=== PATIENT | female | born 1985 | race Caucasian/White ===

== ENCOUNTER → 2021-12-22 | Day surgery (SDC) | payer BC ==
[~2021-12-22] MED LIST: ACETAMINOPHEN500 MG PO; DOXYCYCLINE HY100 MG PO; IBUPROFEN600 MG PO; OXYCODON-ACETA1 EAC2 PO; PERCOCET 7.5-31 EACH PO; VALACYCLOVIR500 MG PO
--- NOTE | 2021-12-22 14:31 | NUR ---
12/22/21 1431 Sheets,Amrita 1414 PT ARRIVED TO PACU WITH ORAL AIRWAY IN PLACE AND INSPECTOR WREATH DOING JAW THRUST. RESP EVEN AND UNLABORED. PT HEAD TURNED TO SIDE AND JAW THURST NO LONGER NEEDED TO MAINTAIN AIRWAY. 1416 O2 DECREASED TO 6L. 1419 PT WAKE AND ORAL AIRWAY REMOVED. PT GRABBING AT HER FACE AND O2 REMOVED. 1427 PT WAKES OFF AND ON, PT REPORTS 5-6/10 PAIN, HOB INCREASED AND PT DENIES NAUSEA. PT TALKING TO RN.
--- NOTE | 2021-12-22 21:48 | OR ---
[facility] [address] [place], [place] [address] Signed DATE OF OPERATION: 12/22/2021 SURGEON: Zack Tan MD PREOPERATIVE DIAGNOSIS: Right upper outer quadrant infiltrating ductal breast carcinoma. POSTOPERATIVE DIAGNOSIS: Right upper outer quadrant infiltrating ductal breast carcinoma. PROCEDURE: 1. Injection of methylene blue for sentinel lymph node identification. 2. Deep axillary sentinel lymph node biopsy. 3. Right upper outer quadrant partial mastectomy. ANESTHESIA: General, LMA. Zack Arthur CRNA. INDICATION: This 36-year-old white woman is a patient of Saima Dorado NP and Dr. Ry Hays, who was found to have a palpable lesion in the upper outer aspect of the right breast, comminuted ultrasound and mammogram and ultimately a core biopsied by ultrasound guidance on November 03, 2021. This confirmed an infiltrating ductal carcinoma, considered grade 2. There was no evidence of lymphovascular invasion. Microcalcifications were present and associated with the lesion. She has seen Dr. Jorge Ortez and genetic testing has been undertaken showing negative BRCA mutation and other breast cancer mutations. Presented with her options of management. She opts for partial mastectomy and sentinel lymph node biopsy, possible axillary dissection. She has anticipated to have postoperative radiation therapy as well. Risk of bleeding, infection, cosmetic deformity, need for additional treatment, need for additional resectional therapy should margin be found to be positive were all reviewed with her. She understands and wished to proceed. FINDINGS: Good uptake of radionuclide to the right axillary area was noted. Methylene blue uptake was good as well. There were two small lymph nodes associated with the 1st excision considered possibly bilobed by the pathologist, but negative for metastatic disease. There are no other sentinel lymph nodes identified. The tumor itself was palpable. Wide resection undertaken and given the small size of breasts essentially a near Electronically Signed By: ZACK TAN MD 12/22/21 2148 PATIENT NAME: MARIAM VASQUEZ OPERATIVE REPORT DATE OF : 87 REPORT #: [id number] PHYSICIAN: ZACK TAN MD PCP: SAIMA DORADO REPORT IS CONFIDENTIAL AND NOT TO BE RELEASED WITHOUT AUTHORIZATION [facility] [address] [place], [place] [address] Signed quadrantectomy was undertaken. Despite that, closure of the wound was accomplished with good cosmetic result. The specimen was marked with a short stitch superior and a long stitch laterally while the specimen was in situ prior to explantation. DESCRIPTION OF PROCEDURE: The patient was received from the radiology suite and her x-rays were reviewed regarding the sentinel lymph node localization. She was given a general LMA type anesthetic. Preoperative antibiotic Ancef was given, sequential compression device stockings used, and heparin subcutaneously administered. The upper outer quadrant had a palpable mass. 0.5 mL of methylene blue dye was injected in subepithelial space in the upper outer aspect in the areolar margin on the right. The breast was prepared with a spray Betadine solution and draped sterilely. Interrogation of the right axilla with a C-Trak gamma probe showed an area of intense uptake in relatively low aspect of the axilla just lateral to the pectoralis. A small incision was made directly over this and dissection carried through the dermis with electrocautery. Using blunt and electrocautery dissection, ultimately, a hot lymph node was identified and did have uptake of blue dye. This was excised rather discretely and another associated small node was noted as well. This was passed a sentinel lymph node #1 and #2. Additional interrogation of the axilla using blunt dissection revealed no other obvious nodes, though there was a strong signal within the axilla for the left. The wound was packed and plans made for excision of the primary tumor in the upper outer aspect of the right breast. The areolar margin was marked with a pen. The specimen anticipated for excision was approximately 3-4 cm from the areolar margin. Given her small breast size and high probability of causing a fair amount of cosmetic deformity in maintaining the circumareolar incision, an incision was made directly over the palpable mass in a curvilinear configuration. Dissection was carried through the dermis with electrocautery. Electrocautery was used to excise the specimen with a widely negative margin down to the pectoralis fascia. Prior to explantation of the specimen from its site, it was marked with a short stitch superior and a long stitch lateral. Complete removal was then undertaken. The specimen was passed for permanent pathology. Irrigation was undertaken. The depth of the wound with sterile water. Electrocautery was used for hemostasis. The remaining parenchyma medially could be secured to the minimal parenchyma in the subdermal space laterally with interrupted 2-0 Vicryl suture providing good contour to the breast. The skin was closed with running subcuticular 3-0 Vicryl. By this point, the frozen pathology for sentinel lymph nodes was undertaken. The pathologist thought that there unlikely two lymph nodes, but one bilobed lymph node. In any case, either and both were negative for metastatic disease. The examination of the axilla showed no sign of bleeding or other problem. It was irrigated with sterile water as well, showing no sign of bleeding. The wound was closed with interrupted 2-0 Vicryl and a running subcuticular 3-0 Vicryl as well. Steri-Strips were applied to both Electronically Signed By: ZACK TAN MD 12/22/21 5878 PATIENT NAME: MARIAM VASQUEZ OPERATIVE REPORT DATE OF : 87 REPORT #: [id number] PHYSICIAN: ZACK TAN MD PCP: SAIMA DORADO-Juan C REPORT IS CONFIDENTIAL AND NOT TO BE RELEASED WITHOUT AUTHORIZATION [facility] [address] [facility] [place] [place] [address] Signed wound sites as was an Acticoat dressing. The patient is allowed to emerge from anesthesia, extubated, and taken to the recovery room in good condition having suffered no complications. Blood loss was less than 20 mL in aggregate. Sponge, needle, and instrument counts reported as correct x3. MD CARLOS Gambino/VAHID /[id number] cc: SABINE Torres MD Michael John Brunsman, MD Juno Choe, MD, PH.D. Copies: PEACE WEBB MD, MICHAEL JOHN MD CHOE, JUNO ~ Electronically Signed By: ZACK TAN MD 12/22/21 2148 PATIENT NAME: MARIAM VASQUEZ OPERATIVE REPORT DATE OF : [birth year] REPORT #: [id number] PHYSICIAN: ZACK TAN MD PCP: SAIMA DORADO REPORT IS CONFIDENTIAL AND NOT TO BE RELEASED WITHOUT AUTHORIZATION
--- NOTE | 2021-12-25 08:41 | PATH ---
[facility] [address] [facility] [place] [address] Signed SPECIMEN(S): A RIGHT SENTINEL LYMPH NODE #1 AND #2 SPECIMEN(S): B RIGHT BREAST SPECIMEN SOURCE: A. RIGHT SENTINEL LYMPH NODE #1 AND #2 B. RIGHT BREAST CLINICAL HISTORY: Right upper quadrant infiltrating ductal carcinoma of breast. FROZEN SECTION DIAGNOSIS: A. [place] lymph nodes #1 and #2: - No evidence of malignancy one lymph node. Dr. Briseno, 1:45 p.m. 12-22-2021 Frozen section diagnoses called to Dr. Emmanuel at 145 cm. FB (under the direct supervision of a pathologist) The Gross Description was prepared using a voice recognition system. The report was reviewed for accuracy; however, sound-alike word errors, addition and/or deletions may occur. If there is any question about this report, please contact Client Services. FINAL PATHOLOGIC DIAGNOSIS: A. [place] lymph nodes #1 and #2, right axilla, excisional biopsy: - No evidence of malignancy in one lymph node (0/1). B. Breast, right, upper outer quadrant, lumpectomy: - Invasive ductal carcinoma with the following features: - Histologic type: Invasive carcinoma of no special type (ductal). - Histologic grade ([place] histologic score): - Glandular (acinar)/tubular differentiation score: 3. - Nuclear pleomorphism score: 2. - Mitotic rate score: 2. - Overall grade: Grade 2 (total score 7 of 9). - Tumor size: 17 x 14 x 12 mm. - Ductal carcinoma in situ (DCIS): Present; negative for extensive intraductal component (EIC). - Architectural pattern: Cribriform. - Nuclear grade: Grade 2-3 (intermediate to high-grade). - Necrosis: Not identified. - Lymphovascular invasion: Not identified. - Microcalcifications: Present in invasive carcinoma and nonneoplastic PATIENT NAME: MARIAM PLEITEZ PATHOLOGY DATE OF : 87 REPORT #: [id number] PHYSICIAN: [facility] PCP: YARIEL CHAUDHARY REPORT IS CONFIDENTIAL AND NOT TO BE RELEASED WITHOUT AUTHORIZATION [facility] [address] [place], [place] [address] Signed tissue. - Treatment effect in the breast: No known presurgical therapy. - Margins: - Margin status for invasive carcinoma: All margins negative for invasive carcinoma. - Distance from invasive carcinoma to closest margins: 4 mm to the lateral margin, 5 mm to the medial margin. - Invasive carcinoma is greater than 5 mm from all other margins. - Margin status for DCIS: All margins negative for DCIS. - Distance from DCIS to closest margin: 4 mm to medial margin. - DCIS is greater than 5 mm from all other margins. - Regional lymph nodes: All regional lymph nodes negative for tumor (See specimen A). - Total number of lymph nodes examined: 1. - Number of sentinel nodes examined: 1. - Breast biomarker studies: Refer to previously performed testing ([id number]), interpreted as ER positive, VT positive, and HER2 negative for amplification by FISH. - Additional findings: Focal atypical lobular hyperplasia (ALH), columnar cell change. - Pathologic stage classification (pTNM, AJCC 8th ed.): pT1c (sn)pN0. COMMENT: As part of [facility]' Quality Improvement Program, this case was reviewed by another member of our pathology staff. It is noted that the sentinel lymph node specimen was thought to contain two lymph nodes, however upon serially sectioning, it appeared to be a somewhat bilobed lymph node. A diagnostic alert was initiated by Dr. Briseno on 12/25/21. NAL:NRT:cml:C1NR MICROSCOPIC EXAMINATION: Histologic sections of all submitted blocks are examined by light microscopy. These findings, together with the gross examination, support the pathologic diagnosis. Regarding specimen A: A pancytokeratin immunohistochemical stain (with appropriately staining controls) was performed on outside energy sales representatives sections of the sentinel node (block A1) and confirms absence of metastatic tumor cells. PATIENT NAME: MARIAM PLEITEZ [facility] PATHOLOG[facility] DATE OF : 87 REPORT #: [id number] PHYSICIAN: SUREKHA RAINEY PCP: YARIEL CHAUDHARY REPORT IS CONFIDENTIAL AND NOT TO BE RELEASED WITHOUT AUTHORIZATION [address] [address] Signed GROSS DESCRIPTION: Two specimens are received in two containers, labeled "HaidergricelMariam gutierrez." A. The specimen, labeled " HaidergricelMariam gutierrez, sentinel lymph node #1 and #2," is received fresh for frozen section diagnosis and consists of 2.7 x 1.2 x 0.5 cm fat. A 1.7 x 0.6 x 0.3 cm possible lymph node is identified and sectioned to show cristina and fatty tissue. The lymph node is entirely submitted for frozen section resubmitted as received in cassettes A1-A2. B. The specimen, labeled " Mariam Pleitez," and designated on the requisition "upper outer carcinoma of right breast," is received in formalin and consists of 26 gram oriented portion of yellow-cristina fibroadipose tissue that is 5.6 x 5.4 x 2.3 cm. A short suture is present and identifies the superior margin; a long suture identifies the lateral margin. The specimen is inked as follows: superior - blue; inferior - green; medial - red; lateral - orange; anterior - yellow; and posterior - black. The specimen is serially sectioned from superior to inferior into 13 slices revealing a 1.7 x 1.4 x 1.2 cm pink-white, firm, ill-defined mass present in slices 4-8. The mass is 1.4 cm from the anterior soft tissue margin, 2.2 cm from the posterior soft tissue margin, 1.8 cm from the superior soft tissue margin, 2.2 cm from the inferior soft tissue margin, 0.3 cm from the medial soft tissue margin, and 0.6 cm from the lateral soft tissue margin. Approximately 20% of the remaining specimen is a yellow-cristina greasy adipose tissue and 80% is a white-cristina rubbery fibrous tissue. Ore Sampler sections are submitted in 10 cassettes. Cassette summary: (B1) slice one, superior soft tissue resection margin, perpendicular, outside energy sales representatives sections (B2-B3) slice five (B4-B5) slice six (B6-B7) slice seven (B8) fibroadipose tissue superior to mass, slice four (B9) fibroadipose tissue inferior to mass slice nine (B10) slice 13, inferior soft tissue resection margin, perpendicular, outside energy sales representatives sections. Cold ischemia time: One minute Approximate Formalin time: 23 hours. PERFORMING LABORATORY: PATIENT NAME: MARIAM PLEITEZ PATHOLOGY DATE OF : 87 REPORT #: [id number] PHYSICIAN: SUREKHA RAINEY PCP: YARIEL CHAUDHARY REPORT IS CONFIDENTIAL AND NOT TO BE RELEASED WITHOUT AUTHORIZATION [facility] [address] [place] [address] Signed Frozen section performed at [facility], [address] [place] [address] (CLIA# [id number]). The technical component was [place] [address] (CLIA# [id number]). Professional interpretation was performed by [facility], [address] [place] [address] (CLIA# [id number]). Diagnostician: Yesenia Briseno MD Pathologist Electronically Signed 12/25/2021 Copies: ~ PATIENT NAME: MARIAM PLEITEZ PATHOLOGY DATE OF : 87 REPORT #: [id number] PHYSICIAN: SUREKHA RAINEY PCP: YARIEL CHAUDHARY REPORT IS CONFIDENTIAL AND NOT TO BE RELEASED WITHOUT AUTHORIZATION
== END ==
LOC: DS 09:34 → EDSTATUS 11:00 → DS 11:00 → NUC 11:00
PROVIDERS: ATTEND Surgery
PROC: 0HBT0ZZ Excision of Right Breast, Open Approach (ICD-10-PCS; principal; 2021-12-22 12:00)
PROC: 07B50ZX Excision of Right Axillary Lymphatic, Open Approach, Diagnostic (ICD-10-PCS; 2021-12-22 12:00)
DX: D05.11 Intraductal carcinoma in situ of right breast (principal); Z17.0 Estrogen receptor positive status [ER+]; J45.909 Unspecified asthma, uncomplicated; Z88.1 Allergy status to other antibiotic agents
CPT/HCPCS: 78195; A9541; J0131; J0690; J1100; J1644; J1885; J2250; J2405; J2704; J2765; J3010; J7121; Q9968

== ENCOUNTER 2022-05-19 05:57 | Day surgery (SDC) | payer BC ==
[~2022-05-19] VITALS: Ht 137.2 cm; Wt 56.8 kg
[~2022-05-19 05:57] MED LIST changes: +ARIMIDEX1 MG PO
[2022-05-19] MEDS ORDERED: HAIR SKIN NAIL1 EACH PO (06:23)
[2022-05-19] MEDS ORDERED: CALTRATE 600 P1 EACH PO (06:23)
[2022-05-19] MEDS ORDERED: ZOLEDRONIC4 MG/5 ML IV (06:24)
[2022-05-19] MEDS ORDERED: ZOLADEX3.6 MG SUB-Q (06:24)
--- NOTE | 2022-05-19 09:15 | NUR ---
05/19/22 0915 Tayler Barrett 0910-PT TO PACU IN SUPINE POSITION. DOES NOT RESPOND TO VERBAL OR TACTILE STIMULI. ORAL AIRWAY IN PLACE. BREATHING EASY AND UNLABORED. SPO2 >95% ON ROOM AIR. 0914-PT CONTINUES TO SLEEP WITH ORAL AIRWAY IN PLACE. BREATHING EASY AND UNLABORED. SPO2 >95% ON ROOM AIR.
--- NOTE | 2022-05-19 11:25 | NUR ---
1010: PATIENT BACK IN DAY SURGERY ROOM FROM PACU. DROWSY, BUT EASILY AWAKENS TO VOICE. RATES PAIN 8/10. STATES PAIN WORSE ON RIGHT SIDE OF ABDOMEN. BANDAIDS X 3 ACROSS ABDOMEN WITH SCANT AMOUNT OF DRAINAGE ON EACH. VS CHECKED. IV SITE WNL. DENIES NAUSEA. SCDs ON. SISTER AT BEDSIDE. CALL LIGHT WITHIN REACH.
--- NOTE | 2022-05-19 11:31 | NUR ---
1020: PATIENT MEDICATED FOR PAIN WITH IV MORPHINE. 1030: PATIENT STATES PAIN IMPROVING. 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 C/O ARM ITCHING AFTER MORPHINE ADMIN. NO REDNESS ON ARM SEEN. PATIENT DECLINES NEED FOR ALLERGY MEDS AT THIS TIME. NO OTHER S/SX OF ALLERGIC REACTION AT THIS TIME. SISTER AT BEDSIDE. CALL LIGHT WITHIN REACH. 1040: PATIENT MEDICATED WITH 1 TAB OF PERCOCET FOR PAIN. NO OTHER NEEDS AT THIS TIME. PATIENT RESTING/SLEEPING. SISTER AT BEDSIDE. CALL LIGHT WITHIN REACH. 1105: VS CHECKED. PATIENT STATES PAIN IMPROVING. RATES PAIN 3/10. PATIENT STILL DROWSY, BUT EASILY AWAKENS. MCCURDY REMAINS IN PLACE. NO NEEDS AT THIS TIME. SISTER AT BEDSIDE. CALL LIGHT WITHIN REACH.
--- NOTE | 2022-05-19 11:44 | NUR ---
CHECKED PATIENT. PATIENT CONTINUES TO C/O PAIN ON RIGHT SIDE OF ABDOMEN. STATES PAIN RADIATES TO RIGHT BACK WELL. RATES PAIN 4/10. NO OTHER NEEDS AT THIS TIME. CALL LIGHT WITHIN REACH.
--- NOTE | 2022-05-19 12:24 | NUR ---
1205: DR. SERVIN IN TO SEE PATIENT. UPDATED ON PATIENT'S RIGHT SIDE ABDOMINAL AND BACK PAIN. WILL CONTINUE TO MONITOR. VS CHECKED. NO OTHER NEEDS AT THIS TIME. SISTER AT BEDSIDE. CALL LIGHT WITHIN REACH.
--- NOTE | 2022-05-19 13:35 | NUR ---
1325: PATIENT AWAKENED FOR VS CHECK. STATES PAIN IMPROVED IN RIGHT ABDOMEN AND RIGHT BACK. RATES PAIN 2/10. MCCURDY REMOVED. PATIENT TOLERATED MCCURDY REMOVAL WELL. PATIENT ASSISTED TO SIT ON SIDE OF BED. PATIENT C/O SOME DIZZINESS. DIZZINESS IMPROVED AFTER A COUPLE MINUTES. PATIENT ASSISTED TO STAND AND WALK AROUND ROOM. GAIT STEADY. PATIENT BACK IN BED. CALL LIGHT WITHIN REACH. SOUP ORDERED. CRACKERS GIVEN TO PATIENT. TOLERATING WATER.
--- NOTE | 2022-05-19 13:58 | NUR ---
PATIENT EATING SOUP. REFILLED WATER. SISTER BACK IN ROOM WITH PATIENT. CALL LIGHT WITHIN REACH.
--- NOTE | 2022-05-19 15:32 | NUR ---
1435: PATIENT ASSISTED OOB AND TO BATHROOM. GAIT STEADY. VOID WITHOUT DIFFICULTY. GAIT STEADY BACK TO ROOM. PATIENT CONTINUES TO HAVE PAIN ON RIGHT ABDOMEN AND RIGHT BACK, BUT STATES WOULD LIKE TO GO HOME. MEDICATED FOR 5/10 PAIN WITH 1 TAB OF PERCOCET. PATIENT DRESSED WITH HELP FROM SISTER. 1440: DR. SERIVN UPDATED ON PATIENT STATUS VIA PHONE CALL. OK TO DISCHARGE PATIENT HOME PER DR. SERVIN. 1458: DISCHARGE INSTRUCTIONS GIVEN TO PATIENT AND SISTER. VS CHECKED. IV DC'D WNL. TIP INTACT. DRESSING APPLIED. PATIENT DISCHARGED TO HOME VIA WHEELCHAIR WITH SISTER.
--- NOTE | 2022-05-25 12:48 | OR ---
[facility] [address] [place], [place] [address] Signed DATE OF OPERATION: 05/19/2022 SURGEON: Claire Downing MD SCIENCE TUTOR: CELESTE Verdin DO PREOPERATIVE DIAGNOSIS: ER positive breast cancer. POSTOPERATIVE DIAGNOSIS: ER positive breast cancer. PROCEDURE: Total laparoscopic hysterectomy with bilateral salpingo-oophorectomy, cystoscopy. ANESTHESIA: General ET. ESTIMATED BLOOD LOSS: 25 mL. DRAINS: Manning. INDICATIONS AND FINDINGS: The patient is a 36-year-old female recently diagnosed with ER positive breast cancer. She has undergone lumpectomy and sentinel node removal. She has been receiving IM Zoladex and wishes to avoid further treatment with this. She would like to undergo removal of her ovaries and her uterus. At the time of surgery, exam under anesthesia was normal. At the time of laparoscopy, her pelvis was normal. She did have a tiny spot of endometriosis over the left ureter. DESCRIPTION OF PROCEDURE: The patient was prepped and draped in the dorsal lithotomy position. A weighted speculum was placed. The anterior lip of the cervix was visualized and grasped with a single-tooth tenaculum. The endometrial cavity was sounded to 7 cm. The endocervical canal was then dilated and the VCare cannula was then was placed and the balloon inflated at the fundus. The tenaculum and speculum removed. The cup was fitted over the cervix and a locking cap was fitted into place. Following this, attention was Electronically Signed By: CLAIRE DOWNING MD 05/25/22 1248 PATIENT NAME: MARIAM VASQUEZ OPERATIVE REPORT DATE OF : [birth year] REPORT #: [id number] PHYSICIAN: CLAIRE DOWNING MD PCP: YARIEL CHAUDHARY REPORT IS CONFIDENTIAL AND NOT TO BE RELEASED WITHOUT AUTHORIZATION [facility] [address] [place], [place] [address] Signed directed above. The infraumbilical area was injected with 0.5% Marcaine plain. An incision was made with a knife. Each layer was serially elevated, incised until the fascia was opened and identified. Stay sutures of 0 Vicryl were placed. Peritoneum was opened bluntly. The Miri cannula was placed. The balloon inflated. It was tied into place. Placement of the scope confirmed proper positioning. CO2 was then introduced into the abdomen. The pelvis was evaluated. The planned procedure appeared appropriate. The secondary ports were then placed. The left-sided port was a 5 mm port and the right was the Veress needle followed the expanding port. Each of these areas were transilluminated, injected with the Marcaine incision, made with a knife and the trocars placed under direct vision. Following this, the patient's left infundibulopelvic ligament was grasped with a LigaSure [place] device. The ureter was seen to freely be moving and well below the planned surgical site. The IP was serially coagulated and divided. A 0 PDS Endoloop was then placed to assure hemostasis. This was done x2 as the first was not felt to be adequate. Following this, the broad ligament was serially coagulated and divided and the round ligament was serially coagulated and divided. The anterior peritoneum was incised allowing for creation of a partial bladder flap. The posterior peritoneum was also incised. The uterine vessels were then skeletonized and coagulated multiple times and divided. Attention was then directed to the patient's right side. The infundibulopelvic ligament was again identified. The ureter was seen to be well below the planned site of coagulation. The IP was coagulated and divided. An Endoloop of 0 PDS was also placed to assure hemostasis. The broad ligament was serially coagulated and divided until the round ligament was divided. The anterior peritoneum was incised, completing the bladder flap. The posterior peritoneum was taken down as well. Following this, the uterine vessels were coagulated multiple times and divided. Further dissection was done both posteriorly and anteriorly until the cup could be felt. Attention was redirected to the patient's left side. Additional coagulation was done around the uterine vessel areas and at this point, it was felt appropriate to remove the specimen. The BetterDoctor device was used to separate the specimen from the vaginal cuff. This was began posteriorly and wrapped around on the left anteriorly and again posteriorly and wrapped around on the right. The specimen was then retrieved vaginally. The vaginal canal was packed with a glove with a wet lap to allow the pneumoperitoneum to reaccumulate. The abdomen was then irrigated and inspected and good hemostasis was noted at the cuff. The cuff itself was closed using a 0 PDS Stratafix. This was begun at the right uterosacral ligament, taking care to incorporate the vaginal mucosa both anteriorly and posteriorly and this was run to the patient's left uterosacral ligament and back to the center. Following this, the abdomen was re-evaluated and good hemostasis was noted. The decision was made not to try to excise the area of endometriosis on the patient's left due to its location and the fact the patient will be on antiestrogen treatment for quite some time. Following this, the abdominal instruments removed after allowing as much CO2 as possible to escape. The fascial incision at the umbilicus was reidentified and closed with a running suture of 0 Vicryl. The skin incisions were closed with Electronically Signed By: CLAIRE DOWNING MD 05/25/22 1248 PATIENT NAME: MARIAM VASQUEZ OPERATIVE REPORT DATE OF : [birth year] REPORT #: [id number] PHYSICIAN: CLAIRE DOWNING MD PCP: YARIEL CHAUDHARY VENEER SHEET REPAIRER-Juan C REPORT IS CONFIDENTIAL AND NOT TO BE RELEASED WITHOUT AUTHORIZATION [facility] [address] [place] [id number] Signed subcuticular sutures of 3-0 Vicryl Rapide. Attention was directed down below and the vaginal pack was removed. The cystoscopy was then done. She had received IV fluorescein. Manning catheter was removed and the 30-degree scope placed. The patient's left ureter was seen to clearly freely egress fluorescein stained urine. There was some egress on the right side, but the actual orifice could not be seen using the 30-degree scope. The scope was changed out for the 70-degree scope and the patient's right ureter was identified and free spill of fluorescein stained urine was seen. There was no other injury to the bladder. The bladder was then drained and the Manning catheter replaced. The procedure was then terminated. All sponge and needle counts were correct. She tolerated the procedure well and was taken to the recovery room in good condition. Claire Downing MD PJW/MODL /[id number] cc: Dr. ALONSO [place] Copies: ~ Electronically Signed By: CLAIRE DOWNING MD 05/25/22 1248 PATIENT NAME: MARIAM VASQUEZ EVANGELISTA OPERATIVE REPORT DATE OF : [birth year] REPORT #: [id number] PHYSICIAN: CLAIRE DOWNING MD PCP: YARIEL CHAUDHARY REPORT IS CONFIDENTIAL AND NOT TO BE RELEASED WITHOUT AUTHORIZATION
--- NOTE | 2022-05-27 16:24 | PATH ---
[facility] [address] [place], [place] [address] Signed SPECIMEN(S): A UTERUS, CERVIX, BILAT TUBES AND OVARIES SPECIMEN SOURCE: A. UTERUS, CERVIX, BILAT TUBES AND OVARIES CLINICAL HISTORY: Malignant neoplasm of right breast, estrogen receptor positive FINAL PATHOLOGIC DIAGNOSIS: Cervix, uterus, bilateral tubes and ovaries, hysterectomy with bilateral salpingo-oophorectomy: - Endocervical and ectocervical epithelia within normal limits. - Nabothian cysts. - Uterus with proliferative-phase endometrium and no evidence of malignancy. - Left and right fallopian tubes within normal limits. - Paratubal cyst. - Left and right ovaries with cystic follicles, surface epidermal inclusion cysts, and corpora albicantia. TWK:[facility]:C2NR MICROSCOPIC EXAMINATION: Histologic sections of all submitted blocks are examined by light microscopy. These findings, together with the gross examination, support the pathologic diagnosis. GROSS DESCRIPTION: The specimen, labeled and designated "Haroldo Pleitez, " and designated on the requisition "cervix, uterus, bilateral tubes and ovaries," is received in formalin and consists of 77 gram uterus and cervix with bilateral adnexa. The uterus is 3.1 x 3.6 x 8.6 cm (cornu-cornu x anterior-posterior x fundus-ectocervix). The serosal surface is pink-cristina smooth. The ectocervical mucosa is violaceous and smooth with areas of disruption. Serial sectioning of the cervix fails to demonstrate any gross abnormalities. The triangular endometrial cavity is lined by a pink smooth and focally congested endometrium that has an average thickness of 0.2 cm. Sectioning through the uterus reveals a pink moderately trabeculated myometrium. The left tubo-ovarian complex has a 7.8 x 0.7 cm fallopian tube with delicate fimbriae. The serosa is violaceous and smooth. Cut sections reveal a pinpoint lumen. The 3.2 x 2.6 x 1.9 cm ovary has a PATIENT NAME: MARIAM PLEITEZ PATHOLOGY DATE OF : [birth year] REPORT #: [id number] PHYSICIAN: SUREKHA RAINEY PCP: YARIEL CHAUDHARY REPORT IS CONFIDENTIAL AND NOT TO BE RELEASED WITHOUT AUTHORIZATION [facility] [address] [place], [place] [address] Signed white-cristina cerebriform external surface. Serial sectioning reveals a pink-white variegated ovarian parenchyma with multiple clear watery fluid-filled cysts. No papillary excrescence is grossly identified. The right tubo-ovarian complex has a 7.5 x 0.7 cm fallopian tube with delicate fimbriae. The serosa is violaceous and smooth. Cut sections reveal a pinpoint lumen. The 3.4 x 2.6 x 1.8 cm ovary has a white-cristina cerebriform external surface. Serial sectioning reveals a pink-white variegated ovarian parenchyma with multiple clear watery fluid-filled cysts. No papillary excrescence is grossly identified. Bench Press Operator sections are submitted in 6 cassettes. Cassette Summary: (A1-A2) left tubo-ovarian complex (A3-A4) right tubo-ovarian complex (A5) cervix (A6) uterine wall FB (under the direct supervision of a pathologist) The Gross Description was prepared using a voice recognition system. The report was reviewed for accuracy; however, sound-alike word errors, addition and/or deletions may occur. If there is any question about this report, please contact Client Services. PERFORMING LABORATORY: The technical component was performed by [employer], [address] [place] [id number] (CLIA# [id number]). The professional interpretation was performed by [facility], [facility], [address] [place] [place] [place] [address] (CLIA#: [id number]). Diagnostician: Bruno Burt MD Pathologist Electronically Signed 05/27/2022 Copies: ~ PATIENT NAME: MARIAM PLEITEZ EVANGELISTA PATHOLOGY DATE OF : [birth year] REPORT #: [id number] PHYSICIAN: SUREKHA PATHOLOGY PCP: YARIEL CHAUDHARY REPORT IS CONFIDENTIAL AND NOT TO BE RELEASED WITHOUT AUTHORIZATION
== END 2022-05-19 14:58 | disposition home or self-care (01) ==
LOC: DS 05:57
PROVIDERS: ATTEND Obstetrics & Gynecology
PROC: 0UT74ZZ Resection of Bilateral Fallopian Tubes, Percutaneous Endoscopic Approach (ICD-10-PCS; 2022-05-19)
PROC: 0UT94ZZ Resection of Uterus, Percutaneous Endoscopic Approach (ICD-10-PCS; principal; 2022-05-19 07:30)
PROC: 0UT24ZZ Resection of Bilateral Ovaries, Percutaneous Endoscopic Approach (ICD-10-PCS; 2022-05-19 07:30)
DX: N83.8 Other noninflammatory disorders of ovary, fallopian tube and broad ligament (principal); C50.919 Malignant neoplasm of unspecified site of unspecified female breast; N88.8 Other specified noninflammatory disorders of cervix uteri; N80.30 Endometriosis of pelvic peritoneum, unspecified
CPT/HCPCS: 00840; J0690; J1100; J1644; J1885; J2001; J2250; J2270; J2405; J2704; J2765; J3010; J7121

== ENCOUNTER 2022-06-10 06:04 | Day surgery (SDC) | payer BC ==
[~2022-06-10] VITALS: Ht 137.2 cm; Wt 57.0 kg
--- NOTE | ~2022-06-10 | OR ---
[facility] [address] [place], [place] [address] Draft DATE OF OPERATION: 06/10/2022 SURGEON: Claire Downing MD POWDERED METAL SUPERVISOR: Dr. Verdin. PREOPERATIVE DIAGNOSIS: Persistent vaginal bleeding following TLH. POSTOPERATIVE DIAGNOSIS: Persistent vaginal bleeding following TLH. PROCEDURE: Laparoscopy, revision of vaginal cuff, cystoscopy. ANESTHESIA: General ET. ESTIMATED BLOOD LOSS: 20 mL. DRAINS: None. INDICATIONS AND FINDINGS: The patient is a 36-year-old female, who was just over 3 weeks from the TLH done for benign indications, who developed the vaginal bleeding, which has been intermittent, but fairly heavy since approximately 11 days postop. No source has been able to be seen during her exams. There has been no evidence of hematoma. On the day she is scheduled for surgery, she has actually had quite a bit more bleeding today than previously. She is passing small clots. At the time of surgery, evaluation of the vaginal cuff vaginally showed a small clot at the left angle, but there was no obvious bleeding point. On laparoscopy, there was no blood in the pelvis. The cuff appeared intact. There were some adhesions of the omentum to the vaginal cuff, which were divided, but the pelvis was otherwise normal. DESCRIPTION OF PROCEDURE: The patient was prepped and draped in the dorsal lithotomy position. Evaluation of the cuff vaginally showed the small clot at the left angle with no other obvious PATIENT NAME: MARIAM VASQUEZ EVANGELISTA OPERATIVE REPORT DATE OF : [birth year] REPORT #: [id number] PHYSICIAN: CLAIRE DOWNING MD PCP: YARIEL CHUADHARY REPORT IS CONFIDENTIAL AND NOT TO BE RELEASED WITHOUT AUTHORIZATION [facility] [address] [place], [place] [address] Draft abnormality. A Manning catheter was placed initially and the vagina had a sponge stick placed. Attention was then redirected above. The infraumbilical area was injected with 0.5% Marcaine plain. The incision at the umbilicus was re-incised and each layer serially elevated and incised until the fascia was opened and identified and stay sutures of 0 Vicryl were placed. The peritoneum was opened bluntly. The Miri was then placed and the balloon inflated. Placement of the scope confirmed proper positioning. CO2 was then introduced into the abdomen. Following this, the adhesions were noted and this obscured the view of the cuff, so it was felt these were necessary to be divided. A secondary port was placed on the patient's left side. The previous port site was used. This area was injected with the Marcaine. Incision was made with a knife and a 5 mm port placed under direct vision. Following this, the LigaSure [place] device was used to divide the adhesions at the vaginal cuff. After this was done, no abnormality was noted. There was no blood at all. Because of this, the ports were left in situ, but the abdomen was cleared of the gas and preparations were made for going down below. It was felt that the cuff itself was the issue. Going down below, a weighted speculum was placed and the angles of the cuff were grasped with long Allises. The cuff itself was then re-closed with a running locking stitch of 0 Vicryl. Again, no obvious source of the bleeding was identified. After re-doing the cuff, cystoscopy was done. She had received IV fluorescein. The Manning catheter was removed and the 30-degree scope was used. The bladder had no evidence of any injury and free spill of fluorescein stained urine was seen bilaterally from the ureters. Following this, attention was redirected above after changing gloves again. The pelvis was visualized. There was no evidence of any obvious bleeding. The round ligament appeared a little raw on the patient's left side and this was cauterized with monopolar cautery. The pelvis was sprayed with Tisseel, paying particular attention to the left side of the vaginal cuff. Following this, the laparoscopy was completed, the instruments removed. The fascial incision was re-identified and closed with a running suture of 0 Vicryl. The skin incisions were closed with subcuticular sutures of 3-0 Vicryl. Attention was redirected below and there was a little bit of bleeding noted from the left angle again. A superficial suture was placed at the left angle using the 0 Vicryl. This was followed by FloSeal as well as Gel-Foam in this angle. Remaining Tisseel was also sprayed in this area to ensure hemostasis. The procedure was then terminated. The Manning catheter was removed. She was taken to the recovery room in good condition. MD ROYER Garcia/MODL /[id number] PATIENT NAME: MARIAM VASQUEZ OPERATIVE REPORT DATE OF : [birth year] REPORT #: [id number] PHYSICIAN: CLAIRE DOWNING MD PCP: YARIEL CHAUDHARY REPORT IS CONFIDENTIAL AND NOT TO BE RELEASED WITHOUT AUTHORIZATION [facility] [address] [facility] [place], [place] [address] Draft cc: Dr. Verdin Copies: ~ PATIENT NAME: MARIAM VASQUEZ EVANGELISTA OPERATIVE REPORT DATE OF : [birth year] REPORT #: [id number] PHYSICIAN: CLAIRE DOWNING MD PCP: YARIEL CHAUDHARY REPORT IS CONFIDENTIAL AND NOT TO BE RELEASED WITHOUT AUTHORIZATION
[~2022-06-10 06:04] MED LIST changes: +CALTRATE 600 P1 EACH PO; +HAIR SKIN NAIL1 EACH PO; +ZOLADEX3.6 MG SUB-Q; +ZOLEDRONIC4 MG/5 ML IV
[2022-06-10] MEDS ORDERED: PAXIL10 MG PO (06:36)
--- NOTE | 2022-06-10 08:49 | NUR ---
PT TAKEN TO [place]-CONNECTED WITH PTS' MOTHER IN . SHE WILL WAIT, GAVE HER A PAGER. SHE HAS DECIDED TO WAIT IN LOBBY. WILL FOLLOW NEEDED
--- NOTE | 2022-06-10 09:40 | NUR ---
06/10/22 0940 Carina Gonzalez 0933- PT ARRIVES TO PACU NONAROUSABLE TO NOXIOUS STIMULI WITH AN OPA IN PLACE. RESP EVEN AND UNLABORED. OXYGEN SAT 100% ON 6L VIA MASK.
--- NOTE | 2022-06-10 10:45 | NUR ---
1045-PATIENT BACK TO ROOM FROM PACU ON RA. RECEIVED REPORT FROM HALINA NINO. PATIENT IS AWAKE AND STATES PAIN IS 8/10. PATIENT REPORTS SHE NEEDS TO URINATE. PATIENT IS DIZZY WITH MOVEMENT AND BEDPAN PLACED BY DIAGNOSTICS SALES DEVELOPER. 1100-CRACKERS AND WATER GIVEN TO PATIENT. 1110-PATIENT ABLE TO VOID 400ML OF URINE. STATES BLADDER PRESSURE HAS RESOLVED. TOLERATED CRACKERS AND WATER. 1115-PHONE CALL TO DR. SERVIN. REPORT GIVEN PATIENT HAS VOIDED 400ML AND BLADDER PRESSURE HAS RESOLVED. BLADDER SCANNED PATIENT AGAIN AND SHOWS 300 ML. NEW [place] TO WAIT 1 HOUR AND PATINT HAS NOT VOIDED BLADDER SCAN AGAIN AND STRAIGHT CATH PATIENT. 1120-PAIN MEDICATION GIVEN. LIGHTS TURNED DOWN. CALL LIGHT WITHIN REACH.
--- NOTE | 2022-06-10 12:03 | NUR ---
1155-PATIENT LAYING IN BED WITH EYES CLOSED. PATEINT RATES PAIN 5/10 AND THIS IS TOLERABLE FOR HER. DENIES NAUSEA. STILL FEELING DIZZY WITH MOVEMENT. DRESSINGS WITH SMALL AMOUNT OF DRAINAGE. WILVER HUGGER TURNED ON. CALL LIGHT WITHIN REACH.
--- NOTE | 2022-06-10 12:17 | NUR ---
PATIENT SLEEPING. WILL REASSESS BLADDER WHEN PATIENT AWAKES.
--- NOTE | 2022-06-10 13:39 | NUR ---
1250-PATIENT IS AWAKE LAYING IN BED. RESP EVEN AND UNLABORED. RATES PAIN 4/10 DENIES NAUSEA. PATIENT DESCRIBES THE ROOM SPINNING EVERY TIME SHE MOVES HER HEAD. BANDAIDS HAVE A SMALL AMOUNT OF DRAINAGE. 1255-PATIENT UP TO BEDSIDE COMMODE WITH 1 RN ASSIST. PATIENT ABLE TO VOID 500ML OF YELLOW URINE. 1300-PATIENT BACK TO BED. PAIN LEVEL INCREASES WITH MOVEMENT. BEDRAILS UP AND CALL LIGHT WITHIN REACH.
--- NOTE | 2022-06-10 13:56 | NUR ---
1306-PHONE CALL TO DR. SERVIN WITH UPDATE. NEW ORDERS FOR MECLIZINE 12.5MG PO AND SCOPOLAMINE PATCH. WANTS PATIENT BLADDER SCANNED AGAIN. 1315-PHONE TO DR. SERVIN WITH UPDATE. BLADDER SCAN SHOWEN 200ML. NO NEW ORDERS GIVEN.
--- NOTE | 2022-06-10 14:22 | NUR ---
1410-PATIENT LAYING IN BED AWAKE. RESP EVEN AND UNLABORED. RATES PAIN 4/10 AND THIS IS TOLERABLE FOR HER. DENIES NAUSEA. DIZZINESS IMPROVED WITH MEDICATION. ABDOMINAL DRESSINGS HAVE SMALL AMOUNT OF DRAINAGE. 1415-PATIENT UP TO BEDSIDE COMMODE WITH 1 RN ASSIST. PATIENT VOIDS 500ML OF YELLOW URINE. PAIN INCREASES WITH MOVEMENT. 1420-PATIENT BACK TO BED. REFILLED WATER. PAIN BETTER WHEN LAYING DOWN. CALL LIGHT WITHIN REACH.
--- NOTE | 2022-06-10 14:56 | NUR ---
PATIENT LAYING IN BED. STATES CONTINUES TO FEEL BETTER. WOULD LIKE SOME MORE TIME BEFORE GETTING UP FOR A SMALL WALK.
--- NOTE | 2022-06-10 15:15 | NUR ---
1515-PATIENT UP FOR A SMALL WALK AROUND ROOM. GAIT STEADY AND TOLERATED WELL. REPORTS NO DIZZINESS. INCREASED LEFT SIDED PAIN WHEN MOVING. 1522-PHONE CALL TO DR. SERVIN WITH UPDATE. RECEIVED INFORMATION REGARDING SURGERY. NO NEW ORDERS. PATIENT CAN BE DISCHARGED HOME. 1530-PATIENT REPORTS 4/10 PAIN AND WOULD LIKE PAIN MEDICATION BEFORE DISCHARGE. 1533-PAIN MEDICATION GIVEN PER EMAR. PATIENT READY TO GET DRESSED.
--- NOTE | 2022-06-10 16:06 | NUR ---
1550-DISCHARGE INSTRUCTIONS GIVEN TO PATIENT. ALL QUESTIONS ANSWERED. INFORMATION GIVEN REGARDING SURGERY AND LEFT SIDED PAIN. ADVISED PATIENT TO USE HEAT OR ICE TO LEFT SIDE PER DR. SERVIN. VERBALIZED UNDERSTANDING. PATIENT WAITING FOR RIDE. 6755-PATIENT AMBULATES TO WHEELCHAIR. GAIT STEADY AND TOLERATED WELL. RIDE PROVIDED TO FRONT OF HOSPITAL WHERE RIDE WAS WAITING.
== END 2022-06-10 15:00 | disposition home or self-care (01) ==
LOC: DS 06:04
PROVIDERS: ATTEND Obstetrics & Gynecology
PROC: 0UQG4ZZ Repair Vagina, Percutaneous Endoscopic Approach (ICD-10-PCS; principal; 2022-06-10 07:30)
DX: N99.820 Postprocedural hemorrhage of a genitourinary system organ or structure following a genitourinary system procedure (principal); Z79.899 Other long term (current) drug therapy
CPT/HCPCS: J0131; J0690; J1100; J1644; J2001; J2250; J2405; J2550; J2704; J3010; J7121